=== PATIENT | male | born 1995 | race Two or more races ===

== ENCOUNTER 2023-08-29 23:11 | Emergency (ER) | payer OTHER ==
[~2023-08-29] VITALS: Ht 167.6 cm; Wt 70.3 kg
[2023-08-30 00:38] VITALS: BP 131/80; TEMP 98; O2SAT 99
[2023-08-30] MEDS ORDERED: ERYT3.5O9 EACHEYE (00:41)
[2023-08-30] MEDS ORDERED: GENTAMICIN OPTH SOLN 0.3% 5 ML BOTTLE OP ONE (01:00)
[2023-08-30] MEDS ORDERED: OMEP20TA20 PO (09:57)
== END 2023-08-30 00:44 | disposition home or self-care (01) ==
LOC: ER 23:19
DX: H11.9 Unspecified disorder of conjunctiva (principal); Z79.899 Other long term (current) drug therapy

== ENCOUNTER 2023-08-30 09:20 | Emergency (ER) | payer OTHER ==
[~2023-08-30] VITALS: Ht 165.1 cm; Wt 75.7 kg
[~2023-08-30 09:20] MED LIST: ERYT3.5O9 EACHEYE
[2023-08-30 09:41] VITALS: TEMP 98.8
[2023-08-30] MEDS ORDERED: MAG HYDROX/AL HYDROX/SIMETH 30 ML UDC ONE (09:51)
[2023-08-30] MEDS ORDERED: LIDOCAINE VISCOUS 2% UD 15 ML UDC ONE (09:52)
[2023-08-30] MEDS ORDERED: FAMOTIDINE (20 MG) 20 MG TABLET ONE (09:52)
[2023-08-30] MEDS: FAMOTIDINE (20 MG) 20 MG TABLET PO ONE (09:57)
[2023-08-30] MEDS: MAG HYDROX/AL HYDROX/SIMETH 30 ML UDC PO ONE (09:57)
[2023-08-30] MEDS: LIDOCAINE VISCOUS 2% UD 15 ML UDC MM ONE (09:57)
[2023-08-30] MEDS ORDERED: OMEP20TA20 PO (09:57)
[2023-08-30 10:19] VITALS: BP 132/66; O2SAT 100
== END 2023-08-30 10:23 | disposition home or self-care (01) ==
LOC: ER 09:27
DX: K21.9 Gastro-esophageal reflux disease without esophagitis (principal); Z60.2 Problems related to living alone